=== PATIENT | male | born 1955 | race Caucasian/White ===

== ENCOUNTER → 2018-04-13 13:07 | Outpatient (CLI) | payer OTHER, SELFPAY ==
--- NOTE | 2018-04-13 13:22 | XR_ITS ---
XR knee RT 3V HISTORY: Knee pain ITS.REASON: ARTHRITIS ORDERING PHYSICIAN: Freedom Casanova PATIENT AGE: 63 years COMPARISON: None FINDINGS: Mild osteoarthritic changes are present in the medial compartment and patellofemoral joint. No fracture or dislocation is evident. No lytic or blastic change. 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
--- NOTE | 2018-04-13 13:22 | XR_ITS ---
EXAM: XR cervical spine 5V HISTORY: Neck pain ITS.REASON: ARTHRITIS ORDERING PHYSICIAN: Freedom Casanova PATIENT AGE: 63 years COMPARISON: None FINDINGS: There is normal alignment. No obvious fracture or dislocation is evident. Prominent bony hypertrophic changes are present at the C1-C2 junction. Multilevel facet hypertrophic changes are noted C2-T1. Foraminal narrowing is present on the right at C2-C3 C3-C4 and C4-C5 and on the left at C3-C4 C4-C5 and C5-C6. There is mild cervical curvature convex left. Prominent anterior osteophytes are present from C2 to C6 consistent with DISH. IMPRESSION: 1. DISH of the cervical spine. 2. Facet arthritic changes with hypertrophy and bilateral foraminal narrowing. Prominent osteophytes are present also at C1/C2
--- NOTE | 2018-04-13 13:22 | XR_ITS ---
XR knee LT 3V HISTORY: Pain ITS.REASON: ARTHRITIS ORDERING PHYSICIAN: Freedom Casanova PATIENT AGE: 63 years COMPARISON: None FINDINGS: Status post total knee arthroplasty. There is good alignment of the prosthesis. No evidence of orthopedic complication. Mild periarticular calcification noted both medial and lateral to the joint space. There is some increased density in the suprapatellar region and may be related to postsurgical changes. IMPRESSION: Status post total knee replacement with no acute finding
== END ==
PROVIDERS: Visit Provider Orthopaedic Surgery
DX: M13.80 Other specified arthritis, unspecified site (principal); M54.2 Cervicalgia; M25.561 Pain in right knee
CPT/HCPCS: 72050; 73562